=== PATIENT | male | born 1990 | race Two or more races ===

== ENCOUNTER 2021-01-06 16:46 | Emergency (ER) | payer MEDICAID, SELFPAY ==
[2021-01-06 16:49] VITALS: BP 127/73; PULSE 108; RESP 18; TEMP 36.8; O2SAT 98; BMI 27.4
== END 2021-01-06 20:49 | disposition left against medical advice (07) ==
PROVIDERS: Emergency Provider Emergency Medicine
DX: T40.1X1A Poisoning by heroin, accidental (unintentional), initial encounter (principal); F11.10 Opioid abuse, uncomplicated; Y92.9 Unspecified place or not applicable; Z71.51 Drug abuse counseling and surveillance of drug abuser
CPT/HCPCS: 99281

== ENCOUNTER 2021-04-04 08:17 | Outpatient (REF) | payer MEDICAID, SELFPAY ==
[2021-04-04 12:00] LABS: COVID-19 Test Negative (Negative); IDNOW Serial# 16C4AD1C
== END 2021-04-04 08:18 | disposition home or self-care (01) ==
LOC: HO.LAB 08:17
PROVIDERS: Visit Provider Internal Medicine
DX: Z20.822 Contact with and (suspected) exposure to COVID-19 (principal)
CPT/HCPCS: 36415; 87635; C9803

== ENCOUNTER 2021-04-18 13:20 | Outpatient (REF) | payer MEDICAID, SELFPAY ==
[2021-04-18 14:13] LABS: COVID-19 Test Negative (Negative)
== END 2021-04-18 13:21 | disposition home or self-care (01) ==
LOC: HO.LAB 13:20
PROVIDERS: Visit Provider Internal Medicine
DX: Z20.822 Contact with and (suspected) exposure to COVID-19 (principal)
CPT/HCPCS: 36415; 87635; C9803

== ENCOUNTER 2021-06-07 08:25 | Outpatient (REF) | payer MEDICAID, SELFPAY ==
[2021-06-07 09:05] LABS: COVID-19 Test Negative (Negative); IDNOW Serial# 55D5AD1C
== END 2021-06-07 08:26 | disposition home or self-care (01) ==
LOC: HO.LAB 08:25
PROVIDERS: Visit Provider Internal Medicine
DX: Z20.822 Contact with and (suspected) exposure to COVID-19 (principal)
CPT/HCPCS: 87635; C9803

== ENCOUNTER 2021-06-22 05:05 | Emergency (ER) | payer MEDICAID, SELFPAY ==
[2021-06-22 05:13] VITALS: BP 121/82; PULSE 94; RESP 16; TEMP 36.6; O2SAT 96; BMI 29.9
--- NOTE | 2021-06-22 06:32 | ED.GENADULT ---
HPI - General Adult General Chief complaint: General Medical Stated complaint: sinus infection, left side pain Time Seen by Provider: 06/22/21 06:15 Source: patient Mode of arrival: ambulatory History of Present Illness HPI narrative: 31-year-old male with presentation for left-sided facial pressure/job pain without dental caries and states that he has got blocked ears and nasal congestion for 2 weeks. In addition, patient complaints specific left lower chest wall pain that has been ongoing for 6 months. The latter has not been associated with any fever, chills, nausea, vomiting, weight loss, decreased appetite, diarrhea, new cough/sore throat. Related Data Previous Rx's Medication Instructions Recorded levofloxacin 750 mg tablet 750 mg PO DAILY 7 Days #7 tab 06/22/21 Allergies Allergy/AdvReac Type Severity Reaction Status Date / Time amoxicillin [AMOXICILLIN] Allergy Unknown UNKNOWN Verified 01/06/21 16:48 Penicillins [PCN] Allergy Unknown UNKNOWN Verified 01/06/21 16:48 Review of Systems Review of Systems: Pertinent positives and negatives as stated in HPI 10 point review of systems is otherwise negative PMFSH Past Medical History Source: nursing notes reviewed Medical History Pneumothorax Social History Social History Alcohol intake: unknown Patient Tobacco Use Status: Tobacco use Unknown Use of substances other than those prescribed or required for medical reasons: Unknown Advance Directives: No Advance Directives Information Provided: Yes Physical Exam ED Vital Signs: Vital Signs - 24 hr 06/22/21 05:13 Temperature 97.9 F Pulse Rate 94 Respiratory Rate 16 Blood Pressure 121/82 Pulse Oximetry 96 BMI result Body Mass Index 29.9 VITAL SIGNS: Reviewed. GENERAL: Well developed, well nourished, in no acute distress. HEAD: Normocephalic/atraumatic EYES: PERRLA, EOMI EARS: Ext canals without abnormality, TMs non-bulging and non-erythematous NOSE: Nasal congestion with boggy turbinates and pain on palpation of left maxillary sinus OROPHARYNX: no oral lesions noted, posterior pharynx clear but erythematous without noted tonsillar enlargement/erythema/exudates NECK: Supple, no adenopathy LUNGS: Normal breath sounds. No adventitious sounds or accessory muscle use. SpO2<96>; CHEST WALL: Left lower anterior chest wall tenderness there is proximally 3 cm in appears to be musculoskeletal in nature, no crepitus, no noted deformity or erythema/induration. CARDIOVASCULAR: Regular rate and rhythm without noted murmurs ABDOMEN: Soft, non-tender, non-distended with bowel sounds. NEUROLOGIC: Alert and oriented x 4. Strength and sensation to light touch were grossly intact x 4. Course Course Course Narrative: 31-year-old male with history and clinical presentation consistent with sinusitis, suspect given duration that this may be bacterial in nature and patient will be started on antibiotics. On review of patient's complaint of left lower chest wall pain this is been ongoing for 6 months and is not associated with any red flag symptoms, patient was reassured and provided with combination analgesics as well as lidocaine patch instructed to start up with [id number] Pepcid for reported acid reflux. Discharge Plan Discharge Clinical Impression: Sinusitis, Chest wall pain Patient Disposition: Home, Self-Care Instructions: Diet for Stomach Ulcers and Gastritis (ED), Gastroesophageal Reflux Disease (ED), Rhinosinusitis (ED), Chest Wall Pain (ED) Additional Instructions: 1. Recommend [id number] Tylenol and ibuprofen as needed for pain control. Consider [id number] lidocaine patch for additional symptom relief. 2. Please complete the entire course of antibiotics as prescribed. 3. At your earliest convenience obtain a primary care provider and follow-up with that person within the next 2-3 days. Return to the ER for any acute worsening of your symptoms. Prescriptions: New levofloxacin 750 mg tablet 750 mg PO DAILY 7 Days Qty: 7 0RF Referrals: [facility] [Primary Care Provider] - 2 days
[2021-06-22] MEDS: Ketorolac Tromethamine 15 MG/ML VIAL IM (06:56)
[2021-06-22] MEDS: Acetaminophen 325 MG TABLET 975 MG PO (06:57)
[2021-06-22] MEDS: Lidocaine 4 % Patch ADH..PATCH 1 PATCH TRANSDERMA (06:57)
[2021-06-22] MEDS: levoFLOXacin 750 MG TABLET PO (06:57)
== END 2021-06-22 07:10 | disposition home or self-care (01) ==
PROVIDERS: Emergency Provider Student in an Organized Health Care Education/Training Program
DX: J32.9 Chronic sinusitis, unspecified (principal); R07.89 Other chest pain; Z79.899 Other long term (current) drug therapy
CPT/HCPCS: 96372; 99284; J1885

== ENCOUNTER 2021-09-28 08:49 | Outpatient (REF) | payer MEDICAID, SELFPAY ==
[2021-09-28 09:25] LABS: COVID-19 Test Negative (Negative); IDNOW Serial# 08D9AD1C
== END 2021-09-28 08:50 | disposition home or self-care (01) ==
LOC: HO.LAB 08:49
PROVIDERS: Visit Provider Internal Medicine
DX: Z20.822 Contact with and (suspected) exposure to COVID-19 (principal)
CPT/HCPCS: 87635; C9803

== ENCOUNTER 2022-01-02 08:31 | Outpatient (REF) | payer MEDICAID, SELFPAY ==
[2022-01-02 09:05] LABS: COVID-19 Test Positive (Negative); IDNOW Serial# 16C4AD1C
== END 2022-01-02 08:32 | disposition home or self-care (01) ==
LOC: HO.LAB 08:31
PROVIDERS: Visit Provider Internal Medicine
DX: Z20.822 Contact with and (suspected) exposure to COVID-19 (principal)
CPT/HCPCS: 87635; C9803

== ENCOUNTER 2022-12-07 12:17 | Outpatient (REF) | payer MEDICAID, SELFPAY ==
--- NOTE | ~2022-12-07 | XR_ITS ---
EXAMINATION: XR RIBS, RIGHT CLINICAL INFORMATION: Anterior right rib injury 5 days ago COMPARISON: Chest x-ray of August 09, 2019 TECHNIQUE: PA chest and 3 views of the right ribs FINDINGS: Lungs are clear. No consolidation, pneumothorax, or pleural effusion. The cardiomediastinal silhouette and pulmonary vasculature are normal. Osseous structures are unremarkable. Ribs are intact. No fractures are identified. XR/XR ribs RT min 3V w CXR1V IMPRESSION: No acute parenchymal disease within the chest. No displaced right rib fracture identified.
== END 2022-12-07 12:18 | disposition home or self-care (01) ==
LOC: HO.HHCX 12:17
PROVIDERS: Visit Provider Registered Nurse
DX: R07.81 Pleurodynia (principal)
CPT/HCPCS: 71101

== ENCOUNTER 2024-03-06 21:34 | Emergency (ER) | payer MEDICAID, SELFPAY ==
--- NOTE | 2024-03-06 | ECG_ITS ---
Test Reason : CP Blood Pressure : / mmHG Vent. Rate : 093 BPM Atrial Rate : 093 BPM P-R Int : 126 ms QRS Dur : 086 ms QT Int : 330 ms P-R-T Axes : 089 048 036 degrees QTc Int : 410 ms Normal sinus rhythm Normal ECG When compared with ECG of 18-AUG-2019 16:32, Sinus rhythm has replaced Ectopic atrial rhythm Referred By: Generic ED Physician Electronically Signed By:RAPHAEL ARSHAD MD
--- NOTE | ~2024-03-06 | XR_ITS ---
EXAMINATION: XR CHEST CLINICAL INFORMATION: chest pain COMPARISON: Chest radiograph 12/09/2019 TECHNIQUE: Frontal view of the chest was obtained. FINDINGS: No significant abnormality is noted involving the heart, lungs, mediastinum, bony thorax or soft tissues. XR/XR chest 1V IMPRESSION: Unremarkable examination. Electronically signed by: Moi Whiteside MD 03/06/2024 11:29 PM [facility] [place]
[2024-03-06 21:54] VITALS: BP 112/69; PULSE 85; RESP 20; TEMP 37.3; O2SAT 98; BMI 23.2
[2024-03-06 22:32] LABS: MANUAL DIFF FLAG NO
[2024-03-06 22:33] LABS: Basophils Percent Auto 0.4 % (0-2); Eosinophils Absolute Auto 0.2 X10*3/uL (0.0-0.4); Eosinophils Percent Auto 1.9 % (0-4); Hematocrit 37.7 % (42.0-52.0); Hemoglobin 13.3 g/dl (14.0-18.0); Imm Gran Abs Auto 0.02 X10*3/uL (0.00-0.03); Imm Gran Pct Auto 0.2 % (0.0-0.4); Lymphocytes Absolute Auto 3.8 X10*3/uL (1.2-4.9); Lymphocytes Percent Auto 37.8 % (20-40); Mean Corpuscular HGB Conc 35.3 g/dl (31.0-36.0); Mean Corpuscular Hemoglobin 30.3 pg (27.0-33.0); Mean Corpuscular Volume 85.9 fL (80.0-98.0); Mean Platelet Volume 9.5 fL (9.4-12.4); Monocytes Absolute Auto 0.8 X10*3/uL (0.1-1.2); Monocytes Percent Auto 7.7 % (2-11); Neutrophils Absolute Auto 5.3 x10*3/uL (2.0-8.3); Platelet Count 201 X10*3/uL (160-400); Red Blood Count 4.39 X10*6/uL (4.60-5.80); Red Cell Distribution Width 11.9 % (11.0-16.0); White Blood Count 10.1 X10*3/uL (4.8-10.8)
[2024-03-06 22:45] LABS: Anion Gap 9 (12-20); Blood Urea Nitrogen 18 mg/dL (9-16); Carbon Dioxide 29 mmol/L (22-29); Chloride 105 mmol/L (96-108); Creatinine Clr Calc Pharmacy 109.9; Estimated Glomerular Filt Rate > 60; Glucose Random 117 mg/dL (60-115); Sodium 139 mmol/L (135-145)
[2024-03-06 22:54] LABS: Troponin-I High Sensitivity < 2.7 ng/L (<3.5-35.0)
--- NOTE | 2024-03-07 02:32 | ED_ITS ---
HPI - Chest Pain General Chief Complaint: Chest Pain Stated Complaint: feels pain inside chest around lung area? Time Seen by Provider: 03/07/24 02:21 Source: patient Mode of arrival: ambulatory Limitations: no limitations History of Present Illness ED Provider: DR. Gan HPI narrative: 34-year-old male came in for evaluation of left-sided chest pain for 2 weeks, no chest injury or trauma, pain is localized to the left side worsening with touching his left chest wall or taking a deep breath, no recent travel, no lower extremity swelling or tenderness, no history of pulmonary embolism. Related Data Previous Rx's ?Medication ?Instructions ?Recorded levofloxacin 750 mg tablet 750 mg PO DAILY 7 days #7 tabs 06/22/21 ibuprofen 200 mg tablet 200 mg PO Q6H PRN pain #30 tabs 03/07/24 Allergies Allergy/AdvReac Type Severity Reaction Status Date / Time amoxicillin [AMOXICILLIN] Allergy Unknown UNKNOWN Verified 03/06/24 21:58 Penicillins [PCN] Allergy Unknown UNKNOWN Verified 03/06/24 21:58 Review of Systems 2 Review of Systems: All other systems are reviewed and are negative Constitutional: Reports as per HPI and Reports no additional constitutional complaints Eyes: Reports as per HPI and Reports no additional eye complaints Reports system reviewed and no additional complaints, except as documented Cardiovascular: Reports as per HPI and Reports no additional cardiovascular complaints Respiratory: Reports as per HPI and Reports no additional respiratory complaints Gastrointestinal: Reports as per HPI and Reports no additional gastrointestinal complaints Genitourinary: Reports no additional female genitourinary complaints Musculoskeletal: Reports no additional musculoskeletal complaints Skin/Breast: Reports system reviewed and no additional complaints, except as docu Psychiatric: Reports no additional psychiatric complaints Endocrine: Reports no additional endocrine complaints Hematologic/Lymphatic: Reports no additional hematologic/lymphatic complaints Allergic/Immunologic: Reports no additional allergic/immunologic complaints Reports system reviewed and no additional complaints, except as documented and Reports Abnormal speech [facility] Past Medical History Medical History Pneumothorax Social History Social History Alcohol intake: unknown Patient Tobacco Use Status: Tobacco use Unknown Advance Directives: No Advance Directives Information Provided: No Physical Exam 2 Vital Signs: Vital Signs: Last Vital Signs Temp 99.1 F 03/06/24 21:54 Pulse 85 11/21/24 21:54 Resp 20 03/06/24 21:54 BP 112/69 03/06/24 21:54 Pulse Ox 98 03/06/24 21:54 O2 Del Method Room Air 03/06/24 21:54 BMI result Body Mass Index 23.2 Vital signs have been reviewed and appear to be correct. Blood pressure elevated. Heart rate normal. Respiratory rate normal. Temperature normal. Oxygen saturation normal. Appearance: Alert. Oriented X3. No acute distress. Head: Normal external exam. Normocephalic. Atraumatic. No Garcia signs noted. No raccoon eyes noted Eyes: PERRLA. EOMI. Conjunctiva and sclera normal. Eyelids normal. ENT: TM's Normal. Pharynx normal. Uvula midline. Moist mucous membranes. No trismus noted. No drooling noted. No muffled voice noted. Neck: Normal inspection. Neck supple. FROM. No adenopathy. Thyroid Normal. No meningeal signs. No neck mass noted. CVS: Normal heart rate and rhythm. Heart sound normal. No murmurs noted. Pulses normal throughout. Respiratory: No respiratory distress. Painless inspiration. Breath sounds normal. No wheezes/rales/rhonchi noted. Left chest wall tenderness, no step- off, no deformity. No accessory muscle usage noted or decreased air movement noted. Abdomen: Soft and nontender. Bowel sounds normal in all 4 quadrants. No distention noted. No organomegaly noted. No visible injury noted. Back: No CVA tenderness. Full range of motion noted. Skin: Skin warm and dry. Normal skin color. Normal skin turgor. No rashes/lesions/lacerations noted. Extremities: No lower extremity edema. Extremities exhibit normal range of motion. Extremities nontender. Neuro: Oriented X 3. Cranial nerve exam: II-XII are grossly intact No motor deficit. No sensory deficit. Reflexes normal. Course Reevaluation(s) Reevaluation #1: Patient had similar presentation in the past, physical exam is consistent with chest wall pain , ACS is unlikely diagnosis HEART SCORE IS 0. Time: 02:34 Medical Decision Making Differential Diagnosis Differential Diagnoses: The differential diagnosis associated with the presentation includes ( PLEURISY, chest wall pain, costochondritis, pneumonia, pneumothorax, pleural effusion, Electrolyte derangement, severe anemia.) Admission/Observation Consideration of admission/observation: Escalation of care including admission/observation considered Lab Data MDM Lab Attestation statement: I reviewed the patient's lab results. 03/06/24 22:27 03/06/24 22:27 Labs: Lab Results 03/06/24 Range/Units 22:27 WBC 10.1 (4.8-10.8) X10*3/uL RBC 4.39 L (4.60-5.80) X10*6/uL Hgb 13.3 L (14.0-18.0) g/dl Hct 37.7 L (42.0-52.0) % MCV 85.9 (80.0-98.0) fL MCH 30.3 (27.0-33.0) pg MCHC 35.3 (31.0-36.0) g/dl RDW 11.9 (11.0-16.0) % Plt Count 201 (160-400) X10*3/uL MPV 9.5 (9.4-12.4) fL Immature Gran % (Auto) 0.2 (0.0-0.4) % Neut % (Auto) 52.0 (45-73) % Lymph % (Auto) 37.8 (20-40) % Hall % (Auto) 7.7 (2-11) % Eos % (Auto) 1.9 (0-4) % Baso % (Auto) 0.4 (0-2) % Lymph # (Auto) 3.8 (1.2-4.9) X10*3/uL Hall # (Auto) 0.8 (0.1-1.2) X10*3/uL Eos # (Auto) 0.2 (0.0-0.4) X10*3/uL Baso # (Auto) 0.0 (0.0-0.2) X10*3/uL Abs Immat Gran (auto) 0.02 (0.00-0.03) X10*3/uL Absolute Neuts (auto) 5.3 (2.0-8.3) x10*3/uL Absolute Nucleated RBC 0.000 (0.0-0.012) X10*3/uL Nucleated RBC % (auto) 0.0 (0.0-0.2) /100WBC Sodium 139 (135-145) mmol/L Potassium 4.0 (3.3-5.1) mmol/L Chloride 105 (96-108) mmol/L Carbon Dioxide 29 (22-29) mmol/L Anion Gap 9 L (12-20) BUN 18 H (9-16) mg/dL Creatinine 0.80 (0.5-1.4) mg/dL Estim Creat Clear Calc 109.9 Estimated GFR > 60 Random Glucose 117 H (60-115) mg/dL Calcium 9.0 (8.4-10.2) mg/dL Troponin I High Sens < 2.7 (<3.5-35.0) ng/L Independent Interpretation I performed an independent interpretation of an: Plain X-Ray ( Chest: No acute intrathoracic pathology.) Radiology Impression Discussion of test interpretation with radiology: I have reviewed the radiologist's reading. Discharge Plan Discharge Clinical Impression: Chest wall pain Patient Disposition: Home, Self-Care Instructions: Chest Wall Pain (ED) Prescriptions: New ibuprofen 200 mg tablet 200 mg PO Q6H PRN (Reason: pain) Qty: 30 0RF No Action levofloxacin 750 mg tablet 750 mg PO DAILY 7 Days Qty: 7 0RF Referrals: [facility] [Primary Care Provider] - Print Language: [place]
[2024-03-07] MEDS: Ibuprofen 400 MG TABLET PO (02:45)
[2024-03-07 02:46] VITALS: BP 107/70; PULSE 76; RESP 16; TEMP 36.6; O2SAT 97
[2024-03-07 02:48] VITALS: BP 107/70; PULSE 76; RESP 16; TEMP 36.6; O2SAT 97
== END 2024-03-07 02:49 | disposition home or self-care (01) ==
PROVIDERS: Internal Medicine; Emergency Provider Emergency Medicine
DX: R07.89 Other chest pain (principal)
CPT/HCPCS: 36415; 71045; 80048; 84484; 85025; 93005; 99283; 99285

== ENCOUNTER → 2024-03-06 21:35 | Outpatient (BNV) | payer MEDICAID, SELFPAY | PROVIDERS: Emergency Provider Emergency Medicine; Visit Provider Internal Medicine Cardiovascular Disease | DX: R07.9 Chest pain, unspecified (principal) | CPT/HCPCS: 93010 ==